=== PATIENT | male | born 1945 | race Caucasian/White ===

== ENCOUNTER → 2016-05-01 | Outpatient (CLI) | payer MEDICARE, MEDICAID, OTHER | LOC: RAD 08:38 | PROVIDERS: ATTEND Internal Medicine Gastroenterology | DX: R93.8 Abnormal findings on diagnostic imaging of other specified body structures (principal) | CPT/HCPCS: 74249 ==

== ENCOUNTER → 2016-08-06 | Outpatient (CLI) | payer MEDICARE, OTHER ==
--- NOTE | 2016-08-06 12:17 | RADIOLOGY REPORT (SQ) ---
EXAM DESCRIPTION: CT LUNG CANCER SCREENING COMPLETED DATE/TIME: 08/06/2016 10:22 am REASON FOR STUDY: NICOTINE DEPENDENCE F17.200 NICOTINE DEPENDENCE, UNSPECIFIED, UNCOMPLICATED Has the patient had a Chest CT scan within the past year? No Was the patient offered tobacco cessation counseling? No Was the patient engaged in shared decision making for this test? Yes Does the patient have signs or symptoms of Lung Cancer? No Is the patient a smoker? Yes How many packs per year? 365 How many years since quitting smoking? Patients age: 71 COMPARISON: None. TECHNIQUE: Low Dose CT scan performed of the chest without intravenous contrast for purposes of scre ening for lung cancer. Images reviewed with lung, soft tissue and bone windows. Reconstructed coron al and sagittal MPR images reviewed. All images stored on PACS. All CT scanners at this facility use dose modulation, iterative reconstruction, and/or weight based d osing when appropriate to reduce radiation dose to as low as reasonably achievable (ALARA). [facility]: Dose Right [facility]: CareDose [facility]: Dose Right [facility]: Teradose 4D [facility]: [employer] RADIATION DOSE: 1.95 mGy. . LIMITATIONS: None FINDINGS: LUNGS AND PLEURA: Less than 5 mm calcified granuloma. No pleural effusions or calcifica tions. No pneumothorax. Centrilobular and paraseptal emphysema. Linear scarring in the lingula an d middle lobe. HILAR AND MEDIASTINAL STRUCTURES: No identified masses. No abnormal nodes. HEART AND VASCULAR STRUCTURES: No aortic aneurysm. No pericardial effusion. No cardiac devices. CORONARY ARTERY CALCIFICATIONS: Mild to moderate calcifications. UPPER ABDOMEN, THYROID, BONES, OTHER SOFT TISSUES: No significant findings. IMPRESSION: NEGATIVE LUNG CANCER SCREENING. OTHER FINDINGS ABOVE. LUNGRADS: LUNGRADS: 1 NEGATIVE. NO NODULES, OR DEFINITELY BENIGN NODULES MODIFIER: NONE RECOMMENDATION: Continue annual screening with LDCT in 12 months. COMMENT: CRITERIA: No lung nodules. Nodules with specific calcifications: Complete, central, popcorn, concentric rings and fat containin g nodules. TECHNICAL DOCUMENTATION: JOB ID: [id number] Quality ID # [id number]: Final reports with documentation of one or more dose reduction techniques (e.g., Au tomated exposure control, adjustment of the mA and/or kV according to patient size, use of iterative reconstruction technique) 2010 [facility], [place] Rad[facility]
== END ==
LOC: RAD 10:01
PROVIDERS: ATTEND Family Medicine
DX: F17.200 Nicotine dependence, unspecified, uncomplicated (principal)
CPT/HCPCS: G0297

== ENCOUNTER 2016-10-11 10:49 | Emergency (ER) | payer MEDICARE, OTHER ==
[2016-10-11] MEDS ORDERED: ASPIRIN 325 MG TABLET PO ONE (11:18)
--- NOTE | 2016-10-11 11:22 | ER Document Report ---
ED Medical Screen (RME) - General Chief Complaint: Chest Pain Stated Complaint: CHEST PAIN Time Seen by Provider: 10/11/16 11:17 Mode of Arrival: Wheelchair Information source: Patient TRAVEL OUTSIDE OF THE [place] IN LAST 30 DAYS: No - HPI Patient complains to provider of: CP Onset: Other - pt with intermittent CP for the past few weeks -- had exacerbation this am. Has h/o COPD- quit smoking last week - Related Data Allergies/Adverse Reactions: Penicillins Allergy (Unknown, Verified 02/15/16 14:48) Hives adhesive [Adhesive] Adverse Reaction (Verified 02/15/16 14:48) IRRITATION AT TIMES Past Medical History - Social History Chew tobacco use (# tins/day): No Frequency of alcohol use: None Drug Abuse: None - Past Medical History Cardiac Medical History: Denies: Hx Coronary Artery Disease, Hx Heart Attack, Hx Hypertension Pulmonary Medical History: Reports: Hx COPD Denies: Hx Asthma, Hx Bronchitis, Hx Pneumonia, Hx Tuberculosis Neurological Medical History: Denies: Hx Cerebrovascular Accident, Hx Seizures Renal/ Medical History: Denies: Hx Peritoneal Dialysis GI Medical History: Reports: Hx Gastroesophageal Reflux Disease, Hx Irritable Bowel, Hx Ulcer Musculoskeltal Medical History: Reports Hx Arthritis - osteo, Reports Hx Fibromyalgia Psychiatric Medical History: Reports: Hx Depression Past Surgical History: Reports: Hx Abdominal Surgery - hernia repair x2, Hx Cholecystectomy, Hx Herniorrhaphy. Denies: Hx Pacemaker - Immunizations Immunizations up to date: Yes Hx Diphtheria, Pertussis, Tetanus Vaccination: No Physical Exam - Vital signs Vitals: Temp Pulse Resp BP Pulse Ox 98.1 F 64 18 98/55 L 96 10/11/16 11:02 10/11/16 11:02 10/11/16 11:02 10/11/16 11:02 10/11/16 11:02 Course - Vital Signs Vital signs: Temp Pulse Resp BP Pulse Ox 98.1 F 64 18 98/55 L 96 10/11/16 11:02 10/11/16 11:02 10/11/16 11:02 10/11/16 11:02 10/11/16 11:02
[2016-10-11 11:44] LABS: ABSOLUTE EOSINOPHILS # (AUTO) 0.1 10^3/uL (0.0-0.6); ABSOLUTE LYMPHOCYTES (AUTO) 1.5 10^3/uL (0.5-4.7); ABSOLUTE MONOCYTES (AUTO) 0.4 10^3/uL (0.1-1.4); ABSOLUTE NEUT (AUTO) 3.8 10^3/uL (1.7-8.2); BASOPHILS % (AUTO) 0.5 % (0-2); EOSINOPHILS % (AUTO) 1.1 % (0-6); HEMATOCRIT 41.2 % (37.9-51.0); HEMOGLOBIN 14.2 g/dL (13.5-17.0); HGB HCT DIFFERENCE 1.4; LYMPHOCYTES % (AUTO) 25.1 % (13-45); MEAN CORPUSCULAR HEMOGLOBIN 33.3 pg (27.0-33.4); MEAN CORPUSCULAR HGB CONC 34.6 g/dL (32.0-36.0); MEAN CORPUSCULAR VOLUME 96 fl (80-97); MONOCYTES % (AUTO) 7.6 % (3-13); RED BLOOD COUNT 4.28 10^6/uL (4.35-5.55); RED CELL DISTRIBUTION WIDTH 12.4 % (11.5-14.0); SEGMENTED NEUTROPHILS % (AUTO) 65.7 % (42-78); WHITE BLOOD COUNT 5.8 10^3/uL (4.0-10.5)
--- NOTE | 2016-10-11 11:51 | RADIOLOGY REPORT (SQ) ---
EXAM DESCRIPTION: CHEST PA/LAT COMPLETED DATE/TIME: 10/11/2016 11:39 am REASON FOR STUDY: CP COMPARISON: May 2015 EXAM PARAMETERS: NUMBER OF VIEWS: two views TECHNIQUE: Digital Frontal and Lateral radiographic views of the chest acquired. RADIATION DOSE: NA LIMITATIONS: none FINDINGS: LUNGS AND PLEURA: No opacities, masses or pneumothorax. No pleural effusion. Mild chronic appearing changes appears stable. I cannot exclude a component of obstructive lung disease MEDIASTINUM AND HILAR STRUCTURES: No masses or contour abnormalities. HEART AND VASCULAR STRUCTURES: Heart normal size. No evidence for failure. BONES: No acute findings. HARDWARE: None in the chest. OTHER: No other significant finding. IMPRESSION: No significant interval change. No acute findings. Other findings as noted above TECHNICAL DOCUMENTATION: JOB ID: [id number] [employer]- All Rights Reserved
[2016-10-11 11:58] LABS: ALANINE AMINOTRANSFERASE 29 U/L (21-72); ALKALINE PHOSPHATASE 61 U/L (38-126); ANION GAP 9 (5-19); ASPARTATE AMINO TRANSFERASE 17 U/L (17-59); BILIRUBIN,DIRECT 0.3 mg/dL (0.0-0.4); BILIRUBIN,TOTAL 0.9 mg/dL (0.2-1.3); BLOOD UREA NITROGEN 15 mg/dL (7-20); CALCIUM 9.8 mg/dL (8.4-10.2); CARBON DIOXIDE 28 mmol/L (22-30); CHLORIDE 103 mmol/L (98-107); CREATINE KINASE 39 U/L (55-170); CREATININE RESULT 0.63 mg/dL (0.52-1.25); GLUCOSE 74 mg/dL (75-110); POTASSIUM 4.1 mmol/L (3.6-5.0); SODIUM 140.1 mmol/L (137-145); TOTAL PROTEIN 6.7 g/dL (6.3-8.2)
--- NOTE | 2016-10-11 12:05 | ER Document Report ---
ED General - General Chief Complaint: Chest Pain Stated Complaint: CHEST PAIN Time Seen by Provider: 10/11/16 11:17 Mode of Arrival: Wheelchair Information source: Patient Notes: 71 yr old male hx of copd, osteoarthritis, fibromyalgia, presents with complaints of body aches, chest pain with shortness of breath. Patient notes this pain has been ongoing for months, he feels that he is addicted to his oxycodone, notes when he takes the oxycodone his pain resolves and his shortness of breath resolves but about 6 hours after taking it he starts to feel shaky feels sick feels short of breath with pain and symptoms did not resolve until about an hour after taking his next dose of pain medication TRAVEL OUTSIDE OF THE [place] IN LAST 30 DAYS: No - HPI Onset: Other Onset/Duration: Persistent Quality of pain: Achy Severity: Mild Pain Level: 1 Associated symptoms: Body/muscle aches, Nausea, Vomiting Exacerbated by: Denies Relieved by: Other Similar symptoms previously: Yes Recently seen / treated by doctor: No - Related Data Allergies/Adverse Reactions: Penicillins Allergy (Unknown, Verified 02/15/16 14:48) Hives adhesive [Adhesive] Adverse Reaction (Verified 02/15/16 14:48) IRRITATION AT TIMES Past Medical History - General Information source: Patient - Social History Smoking Status: Current Some Day Smoker Cigarette use (# per day): Yes Chew tobacco use (# tins/day): No Smoking Education Provided: No Frequency of alcohol use: None Drug Abuse: None Family History: None - Past Medical History Cardiac Medical History: Denies: Hx Coronary Artery Disease, Hx Heart Attack, Hx Hypertension Pulmonary Medical History: Reports: Hx COPD Denies: Hx Asthma, Hx Bronchitis, Hx Pneumonia, Hx Tuberculosis Neurological Medical History: Denies: Hx Cerebrovascular Accident, Hx Seizures Renal/ Medical History: Denies: Hx Peritoneal Dialysis GI Medical History: Reports: Hx Gastroesophageal Reflux Disease, Hx Irritable Bowel, Hx Ulcer Musculoskeltal Medical History: Reports Hx Arthritis - osteo, Reports Hx Fibromyalgia Psychiatric Medical History: Reports: Hx Depression Past Surgical History: Reports: Hx Abdominal Surgery - hernia repair x2, Hx Cholecystectomy, Hx Herniorrhaphy. Denies: Hx Pacemaker - Immunizations Immunizations up to date: Yes Hx Diphtheria, Pertussis, Tetanus Vaccination: No Hx Pneumococcal Vaccination: 03/01/11 Review of Systems - Review of Systems Notes: REVIEW OF SYSTEMS: CONSTITUTIONAL : Denies fever, chills, or sweats. Denies recent illness. EENT: Denies eye, ear, throat, or mouth pain or symptoms. Denies nasal or sinus congestion or discharge. Denies throat, tongue, or mouth swelling or difficulty swallowing. CARDIOVASCULAR: Denies chest pain. Denies palpitations or racing or irregular heart beat. Denies ankle edema. RESPIRATORY: Admits to shortness of breath GASTROINTESTINAL: Admits to nausea GENITOURINARY: Denies difficulty urinating, painful urination, burning, frequency, blood in urine, or discharge. MUSCULOSKELETAL: Admits to body aches SKIN: Denies rash, lesions or sores. HEMATOLOGIC : Denies easy bruising or bleeding. LYMPHATIC: Denies swollen, enlarged glands. NEUROLOGICAL: Denies confusion or altered mental status. Denies passing out or loss of consciousness. Denies dizziness or lightheadedness. Denies headache. Denies weakness or paralysis or loss of use of either side. Denies problems with gait or speech. Denies sensory loss, numbness, or tingling. Denies seizures. PSYCHIATRIC: Denies anxiety or stress. Denies depression, suicidal ideation, or homicidal ideation. ALL OTHER SYSTEMS REVIEWED AND NEGATIVE. Dictation was performed using [employer] voice recognition software PHYSICAL EXAMINATION: GENERAL: Well-appearing, well-nourished and in no acute distress. HEAD: Atraumatic, normocephalic. EYES: Pupils equal round and reactive to light, extraocular movements intact, sclera anicteric, conjunctiva are normal. ENT: Nares patent, oropharynx clear without exudates. Moist mucous membranes. NECK: Normal range of motion, supple without lymphadenopathy LUNGS: Breath sounds clear to auscultation bilaterally and equal. No wheezes rales or rhonchi. HEART: Regular rate and rhythm without murmurs ABDOMEN: Soft, nontender, nondistended abdomen. No guarding, no rebound. No masses appreciated. Musculoskeletal: Reproducible chest wall pain right shoulder pain NEUROLOGICAL: Cranial nerves grossly intact. Normal speech, normal gait. Normal sensory, motor exams PSYCH: Normal mood, normal affect. SKIN: Warm, Dry, normal turgor, no rashes or lesions noted. Physical Exam - Vital signs Vitals: Temp Pulse Resp BP Pulse Ox 98.1 F 64 18 98/55 L 96 10/11/16 11:02 10/11/16 11:02 10/11/16 11:02 10/11/16 11:02 10/11/16 11:02 Course - Re-evaluation Re-evalutation: 10/11/16 12:05 I agree with patients that this appears to be withdrawal-like symptoms since symptoms completely resolved with pain medication 10/11/16 12:37 I believe patients symptoms are secondary to withdrawal, will start clonidine. Give patient tramadol for pain mental health consulted for assistance After performing a Medical Screening Examination, I estimate there is LOW risk for RUPTURED ESOPHAGUS, PNEUMOTHORAX, PULMONARY EMBOLISM, ACUTE CORONARY SYNDROME, OR THORACIC AORTIC DISSECTION, thus I consider the discharge disposition reasonable. I have reevaluated this patient multiple times and no significant life threatening changes are noted. The patient and I have discussed the diagnosis and risks, and we agree with discharging home with close follow-up. We also discussed returning to the Emergency Department immediately if new or worsening symptoms occur. We have discussed the symptoms which are most concerning (e.g., bloody sputum, worsening pain or shortness of breath) that necessitate immediate return. - Vital Signs Vital signs: Temp Pulse Resp BP Pulse Ox 98.1 F 64 18 98/55 L 96 10/11/16 11:02 10/11/16 11:02 10/11/16 11:02 10/11/16 11:02 10/11/16 11:02 - Laboratory Result Diagrams: 10/11/16 11:20 10/11/16 11:20 Laboratory results interpreted by me: 10/11/16 10/11/16 11:20 11:20 RBC 4.28 L Glucose 74 L Creatine Kinase 39 L - Diagnostic Test Radiology reviewed: Image reviewed, Reports reviewed - EKG Interpretation by Nd EKG shows normal: Sinus rhythm, [place], Intervals, QRS Complexes Discharge - Discharge Clinical Impression: Withdrawal from opioids Chest pain Qualifiers: Chest pain type: unspecified Qualified Code(s): R07.9 - Chest pain, unspecified Condition: Stable Disposition: HOME, SELF-CARE Instructions: Chest Pain of Unclear Cause ([facility]) Additional Instructions: Please follow-up with the care plan provided to your return immediately if there are any other concerns Prescriptions: Tramadol HCl 50 mg PO Q6 #30 tablet
[2016-10-11 12:10] LABS: CREATINE KINASE MB 0.82 ng/mL (<4.55); TROPONIN I < 0.012 ng/mL
[2016-10-11] MEDS ORDERED: CLONIDINE 0.1 MG/24 HR PATCH.TDWK TD ONE (12:36)
[2016-10-11 13:08] VITALS: BP 119/66
--- NOTE | 2016-10-11 23:12 | EKG REPORT ---
SEVERITY:- NORMAL ECG - SINUS RHYTHM : Confirmed by: Karime Shell 11-Oct-2016 23:11:52
== END 2016-10-11 13:05 | disposition home or self-care (01) ==
LOC: ER 10:49
DX: F11.23 Opioid dependence with withdrawal (principal); M79.7 Fibromyalgia; R07.9 Chest pain, unspecified; R06.02 Shortness of breath; J44.9 Chronic obstructive pulmonary disease, unspecified; M19.90 Unspecified osteoarthritis, unspecified site; R11.2 Nausea with vomiting, unspecified; F17.210 Nicotine dependence, cigarettes, uncomplicated; Z88.0 Allergy status to penicillin; Z91.048 Other nonmedicinal substance allergy status
CPT/HCPCS: 93005; 99285; 36415; 82553; 82550; 85025; 80053; 84484; 71020; 93010; A9270; J3490

== ENCOUNTER 2016-10-22 09:31 | Emergency (ER) | payer MEDICARE, OTHER ==
[2016-10-22 09:40] VITALS: BP 117/103
--- NOTE | 2016-10-22 10:01 | ER Document Report ---
ED General - General Chief Complaint: Medication Refill Stated Complaint: WITHDRAWAL FROM OXICODONE Time Seen by Provider: 10/22/16 09:50 Mode of Arrival: Ambulatory Information source: Patient Notes: 71-year-old male who I had seen last week for withdrawal symptoms from his oxycodone who has been doing well on the clonidine and tramadol that I prescribed him presents feeling nauseous agitated since the clonidine patch wore off. Patient attempted to call for assistance with the crisis team but was told to come to the emergency department instead. Patient denies any suicidal homicidal ideations denies any other concerns at this time TRAVEL OUTSIDE OF THE [place] IN LAST 30 DAYS: No - HPI Onset: Last week Onset/Duration: Waxing and waning, Worse Quality of pain: No pain Severity: Mild Pain Level: Denies Associated symptoms: Nausea Exacerbated by: Denies Relieved by: Denies Similar symptoms previously: Yes Recently seen / treated by doctor: Yes - Related Data Allergies/Adverse Reactions: Penicillins Allergy (Unknown, Verified 02/15/16 14:48) Hives adhesive [Adhesive] Adverse Reaction (Verified 02/15/16 14:48) IRRITATION AT TIMES Past Medical History - Social History Smoking Status: Former Smoker Cigarette use (# per day): No Chew tobacco use (# tins/day): No Smoking Education Provided: No Frequency of alcohol use: None Drug Abuse: Prescription drugs Family History: None Patient has suicidal ideation: No Patient has homicidal ideation: No - Past Medical History Cardiac Medical History: Denies: Hx Coronary Artery Disease, Hx Heart Attack, Hx Hypertension Pulmonary Medical History: Reports: Hx COPD Denies: Hx Asthma, Hx Bronchitis, Hx Pneumonia, Hx Tuberculosis Neurological Medical History: Denies: Hx Cerebrovascular Accident, Hx Seizures Renal/ Medical History: Denies: Hx Peritoneal Dialysis GI Medical History: Reports: Hx Gastroesophageal Reflux Disease, Hx Irritable Bowel, Hx Ulcer Musculoskeltal Medical History: Reports Hx Arthritis - osteo, Reports Hx Fibromyalgia Psychiatric Medical History: Reports: Hx Depression Past Surgical History: Reports: Hx Abdominal Surgery - hernia repair x2, Hx Cholecystectomy, Hx Herniorrhaphy. Denies: Hx Pacemaker - Immunizations Immunizations up to date: Yes Hx Diphtheria, Pertussis, Tetanus Vaccination: No Hx Pneumococcal Vaccination: 03/01/11 Review of Systems - Review of Systems Notes: REVIEW OF SYSTEMS: CONSTITUTIONAL : Denies fever, chills, or sweats. Denies recent illness. EENT: Denies eye, ear, throat, or mouth pain or symptoms. Denies nasal or sinus congestion or discharge. Denies throat, tongue, or mouth swelling or difficulty swallowing. CARDIOVASCULAR: Denies chest pain. Denies palpitations or racing or irregular heart beat. Denies ankle edema. RESPIRATORY: Denies cough, cold, or chest congestion. Denies shortness of breath, difficulty breathing, or wheezing. GASTROINTESTINAL: Admits to nausea GENITOURINARY: Denies difficulty urinating, painful urination, burning, frequency, blood in urine, or discharge. MUSCULOSKELETAL: Denies back or neck pain or stiffness. Denies joint pain or swelling. SKIN: Denies rash, lesions or sores. HEMATOLOGIC : Denies easy bruising or bleeding. LYMPHATIC: Denies swollen, enlarged glands. NEUROLOGICAL: Admits to feeling agitated PSYCHIATRIC: Denies anxiety or stress. Denies depression, suicidal ideation, or homicidal ideation. ALL OTHER SYSTEMS REVIEWED AND NEGATIVE. Dictation was performed using [employer] voice recognition software PHYSICAL EXAMINATION: GENERAL: Well-appearing, well-nourished and in no acute distress. HEAD: Atraumatic, normocephalic. EYES: Pupils equal round and reactive to light, extraocular movements intact, sclera anicteric, conjunctiva are normal. ENT: Nares patent, oropharynx clear without exudates. Moist mucous membranes. NECK: Normal range of motion, supple without lymphadenopathy LUNGS: Breath sounds clear to auscultation bilaterally and equal. No wheezes rales or rhonchi. HEART: Regular rate and rhythm without murmurs ABDOMEN: Soft, nontender, nondistended abdomen. No guarding, no rebound. No masses appreciated. Musculoskeletal: Normal range of motion, no pitting or edema. No cyanosis. Digit amputation right hand second NEUROLOGICAL: Cranial nerves grossly intact. Normal speech, normal gait. Normal sensory, motor exams PSYCH: Normal mood, normal affect. SKIN: Warm, Dry, normal turgor, no rashes or lesions noted. Physical Exam - Vital signs Vitals: Temp Pulse Resp BP Pulse Ox 97.6 F 77 18 117/103 H 95 10/22/16 09:35 10/22/16 09:35 10/22/16 09:35 10/22/16 09:35 10/22/16 09:35 Course - Re-evaluation Re-evalutation: 10/22/16 10:42 At the patient's request of continued his clonidine, I spoke with my mental health team they have assured me that the crisis team will be able to see the patient. He will be given a refill of his tramadol as he will need this for his pain. Given the patient's symptoms resolved with clonidine I do not expect any other life-threatening issues associated with this patient must be followed up for further evaluation and care After performing a Medical Screening Examination, I estimate there is LOW risk for RUPTURED ESOPHAGUS, PNEUMOTHORAX, PULMONARY EMBOLISM, ACUTE CORONARY SYNDROME, OR THORACIC AORTIC DISSECTION, thus I consider the discharge disposition reasonable. I have reevaluated this patient multiple times and no significant life threatening changes are noted. The patient and I have discussed the diagnosis and risks, and we agree with discharging home with close follow-up. We also discussed returning to the Emergency Department immediately if new or worsening symptoms occur. We have discussed the symptoms which are most concerning (e.g., bloody sputum, worsening pain or shortness of breath) that necessitate immediate return. - Vital Signs Vital signs: Temp Pulse Resp BP Pulse Ox 97.6 F 77 18 117/103 H 95 10/22/16 09:35 10/22/16 09:35 10/22/16 09:35 10/22/16 09:35 10/22/16 09:35 Discharge - Discharge Clinical Impression: Narcotic withdrawal Condition: Stable Disposition: HOME, SELF-CARE Additional Instructions: Please call the number circled on your paper for further care Return immediately if there are any other concerns Prescriptions: Tramadol HCl [Ultram 50 mg Tablet] 50 mg PO Q6HP PRN #20 tab PRN Reason: Clonidine 1 each TD CONTINUOUS PRN #1 patch.tdwk PRN Reason: Referrals: NOLAN KHAN MD [Primary Care Provider] - Follow up as needed
== END 2016-10-22 10:05 | disposition home or self-care (01) ==
LOC: ER 09:31
DX: Z76.0 Encounter for issue of repeat prescription (principal); F19.939 Other psychoactive substance use, unspecified with withdrawal, unspecified; Z79.899 Other long term (current) drug therapy; Z87.891 Personal history of nicotine dependence
CPT/HCPCS: 99281

== ENCOUNTER 2016-12-01 10:52 | Emergency (ER) | payer MEDICARE, OTHER ==
[2016-12-01 11:06] VITALS: BP 149/73
--- NOTE | 2016-12-01 11:23 | ER Document Report ---
ED General - General Chief Complaint: High Blood Pressure Stated Complaint: BLOOD PRESSURE CONCERN Time Seen by Provider: 12/01/16 11:07 Notes: Patient said he was concerned when he took his blood pressure this morning and it was 139/78 and his heart rate was 98, which he said is too fast for him. He did not have any other concerning symptoms at that time, this morning. Patient says he has had no energy for years and been diagnosed as chronic fatigue syndrome. Also suffers from fibromyalgia. And, has insomnia and only gets about 3 hours sleep a night. Patient says he has had some nausea but not vomiting. He has occasional chest pains. Not feeling short of breath, although he does have COPD and smokes a pack of cigarettes daily. Has not had any fevers. No history of hypertension. Patient goes to pain management. 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 He has been provided with tramadol by his pain management doctor and has been able to get by on just 2 tramadol's daily. PMH: COPD, still smokes. Prostate condition. Fibromyalgia, chronic fatigue, insomnia. No history of hypertension or heart disease. TRAVEL OUTSIDE OF THE [place] IN LAST 30 DAYS: No - Related Data Allergies/Adverse Reactions: Penicillins Allergy (Unknown, Verified 02/15/16 14:48) Hives adhesive [Adhesive] Adverse Reaction (Verified 02/15/16 14:48) IRRITATION AT TIMES Past Medical History - Social History Smoking Status: Current Every Day Smoker Chew tobacco use (# tins/day): No Frequency of alcohol use: None Drug Abuse: None Family History: None Patient has suicidal ideation: No Patient has homicidal ideation: No Pulmonary Medical History: Reports: Hx COPD Renal/ Medical History: Reports: Hx Benign Prostatic Hyperplasia GI Medical History: Reports: Hx Gastroesophageal Reflux Disease, Hx Irritable Bowel, Hx Ulcer Musculoskeltal Medical History: Reports Hx Arthritis - osteo, Reports Hx Fibromyalgia, Reports Other - Chronic fatigue syndrome Psychiatric Medical History: Reports: Hx Depression, Other - Chronic insomnia, only 3 hours sleep a night Past Surgical History: Reports: Hx Abdominal Surgery - hernia repair x2, Hx Cholecystectomy, Hx Herniorrhaphy - Immunizations Immunizations up to date: Yes Hx Diphtheria, Pertussis, Tetanus Vaccination: No Hx Pneumococcal Vaccination: 03/01/11 Review of Systems - Review of Systems Notes: REVIEW OF SYSTEMS: CONSTITUTIONAL : Denies fever. EENT: Denies eye, ear, nose or mouth or throat pain or other symptoms. CARDIOVASCULAR: Occasionally has a fleeting chest pain. RESPIRATORY: Denies cough, chest congestion, but does have occasional shortness of breath due to his COPD.. GASTROINTESTINAL: Denies abdominal pain or vomiting, or diarrhea. Some nausea occasionally. GENITOURINARY: Has prostate condition on Flomax. Denies painful urinating, urinary frequency, blood in urine. MUSCULOSKELETAL: Denies back or neck pain. Denies joint pain or swelling. Has chronic pain in joints and goes to pain management where he receives injections by pain management doctor. SKIN: Denies rash or skin lesions. NEUROLOGICAL: Denies LOC or altered mental status. Denies headache. Denies sensory loss or motor deficits. ALL OTHER SYSTEMS REVIEWED AND NEGATIVE. Physical Exam - Vital signs Vitals: Temp Pulse Resp BP Pulse Ox 98.2 F 87 16 149/73 H 99 12/01/16 11:02 12/01/16 11:02 12/01/16 11:02 12/01/16 11:02 12/01/16 11:02 Interpretation: Normal, Hypertensive - Minimal - Notes Notes: PHYSICAL EXAMINATION: GENERAL: Well-appearing, in no acute distress. Anxious. Minimal hypertension but other vital signs are normal. HEAD: Atraumatic, normocephalic. EYES: Pupils equal round and reactive to light, extraocular movements intact. ENT: oropharynx clear without exudates. Moist mucous membranes. NECK: Normal range of motion, supple. LUNGS: Breath sounds distant but clear and equal bilaterally. HEART: Regular rate and rhythm without murmurs. ABDOMEN: Soft, nontender. No guarding or rebound. BACK: No tenderness throughout entire back. EXTREMITIES: Normal range of motion without pain. NEUROLOGICAL: Normal speech, normal gait. Normal sensory, motor, and reflex exams. Awake, alert, and oriented x3. Cranial nerves normal. PSYCH: Normal mood, normal affect. SKIN: Warm, dry, no rashes. Course - Vital Signs Vital signs: Temp Pulse Resp BP Pulse Ox 98.2 F 87 16 149/73 H 99 12/01/16 11:02 12/01/16 11:02 12/01/16 11:02 12/01/16 11:02 12/01/16 11:02 - Laboratory Result Diagrams: 12/01/16 11:35 12/01/16 11:35 Laboratory results interpreted by me: 12/01/16 12/01/16 11:35 11:35 MCH 33.7 H Carbon Dioxide 31 H - Diagnostic Test Radiology results interpreted by me: 12/01/16 12:46 Chest x-ray shows COPD but nothing acute. - EKG Interpretation by Me EKG shows normal: Sinus rhythm Rate: Normal Rhythm: NSR Additional EKG results interpreted by me: 12/01/16 11:39 EKG normal. Discharge - Discharge Clinical Impression: Hypertension Qualifiers: Hypertension type: essential hypertension Qualified Code(s): I10 - Essential ( primary) hypertension COPD (chronic obstructive pulmonary disease) Qualifiers: Chronic bronchitis type: simple Condition: Stable Disposition: HOME, SELF-CARE Additional Instructions: HIGH BLOOD PRESSURE, NOT TREAT: When your blood pressure was taken today it was elevated. Today's reading was 149 / 73. We do not think you need to have your blood pressure treated today. Sometimes, stress or illness causes a temporary elevation of your blood pressure. We suggest that you get your blood pressure measured again during the next few days to see if this elevated blood pressure is more than a temporary abnormality. If your blood pressure is greater than 150/90 on each occasion, you must have treatment. Some simple things you can do to help are: If you have blood pressure medicine but aren't using it regularly, start taking it again. Get some aerobic exercise for at least 20 minutes on a daily basis. (See your doctor before beginning a new exercise program.) Eat a low-fat diet. Lose excess weight. Avoid salty foods and avoid adding salt to any of the foods you eat. Avoid diet pills, decongestants, "energizing" herbs, and other medicines that elevate blood pressure. If left untreated, hypertension greatly enhances your risk for developing heart disease and strokes. Please don't ignore this problem. Chronic Obstructive Lung Disease You have chronic obstructive lung disease (COPD). The symptoms come from emphysema (damage to small airways, with trapping of air in large sacks in the lung) and chronic bronchitis (repeated infection and damage to larger airways). The cause is almost always cigarette smoking, although dust exposure, asthma, and infections contribute. You should avoid fumes, dust, and smoke (especially tobacco smoke). Your condition will flare from time to time. There is no cure, but the symptoms can be treated. Bronchodilators (asthma medicine) are often helpful. Antibiotics help when infection is present. When shortness of breath is severe, we may prescribe cortisone medication. If medicine doesn't help enough, we can arrange for you to have an oxygen tank at home. Notify your doctor at once if sputum becomes thick, foul, or bloody, if you develop a fever or chest pain, or if your shortness of breath worsens. NORMAL EXAM AND WORKUP: At this time, your examination and workup show no significant abnormality. No significant abnormal physical findings were noted. All laboratory, EKG, and imaging (x-ray, CT scans, ultrasound) studies that were ordered show no significant abnormality. Although your examination and all studies that were ordered showed no significant abnormal finding, there are no examinations and no studies that are 100% accurate. There is always the possibility that some abnormality could exist and not be detected with physical examination or within the limits and capabilities of laboratory and other studies. You should return or follow up as you were instructed on your visit today for further evaluation if your symptoms do not resolve. Stop Smoking You should stop smoking. The tar and chemicals in cigarette smoke are harmful. Smoking has been shown to cause: Emphysema and chronic bronchitis Lung cancer Cancer of the mouth, larynx, stomach, and pancreas Heart disease and stroke Stillbirths and miscarriage Premature aging In addition, smoking increases the chances of respiratory infections and ear infections in children of smokers, and increases the risk of cancer in persons exposed to second-hand smoke. Classes are available to help you stop smoking. If you are serious about wanting to quit, we can help arrange this therapy for you, or you can contact the local lung or cancer association. FOLLOW-UP CARE: If you have been referred to a physician for follow-up care, call the physician s office for an appointment as you were instructed or within the next two days. If you experience worsening or a significant change in your symptoms, notify the physician immediately or return to the Emergency Department at any time for re-evaluation.
[2016-12-01 11:50] LABS: ABSOLUTE BASOPHILS # (AUTO) 0.1 10^3/uL (0.0-0.2); ABSOLUTE EOSINOPHILS # (AUTO) 0.1 10^3/uL (0.0-0.6); ABSOLUTE LYMPHOCYTES (AUTO) 1.7 10^3/uL (0.5-4.7); ABSOLUTE MONOCYTES (AUTO) 0.5 10^3/uL (0.1-1.4); ABSOLUTE NEUT (AUTO) 5.1 10^3/uL (1.7-8.2); BASOPHILS % (AUTO) 0.7 % (0-2); EOSINOPHILS % (AUTO) 1.8 % (0-6); HEMATOCRIT 45.5 % (37.9-51.0); HEMOGLOBIN 15.9 g/dL (13.5-17.0); HGB HCT DIFFERENCE 2.2; LYMPHOCYTES % (AUTO) 22.7 % (13-45); MEAN CORPUSCULAR HEMOGLOBIN 33.7 pg (27.0-33.4); MEAN CORPUSCULAR VOLUME 96 fl (80-97); MONOCYTES % (AUTO) 6.5 % (3-13); RED BLOOD COUNT 4.72 10^6/uL (4.35-5.55); RED CELL DISTRIBUTION WIDTH 12.9 % (11.5-14.0); SEGMENTED NEUTROPHILS % (AUTO) 68.3 % (42-78); WHITE BLOOD COUNT 7.5 10^3/uL (4.0-10.5)
[2016-12-01 11:58] LABS: APPEARANCE,URINE CLEAR; BILIRUBIN,URINE NEGATIVE (NEGATIVE); GLUCOSE, URINE NEGATIVE (NEGATIVE); KETONES,URINE NEGATIVE (NEGATIVE); LEUKOCYTE ESTERASE,URINE NEGATIVE (NEGATIVE); NITRITE,URINE NEGATIVE (NEGATIVE); PROTEIN,URINE NEGATIVE (NEGATIVE); URINE SPECIFIC GRAVITY 1.012; UROBILINOGEN,URINE NEGATIVE mg/dL (<2.0)
[2016-12-01 12:18] LABS: ALANINE AMINOTRANSFERASE 26 U/L (21-72); ALBUMIN 4.4 g/dL (3.5-5.0); ALKALINE PHOSPHATASE 72 U/L (38-126); ANION GAP 8 (5-19); ASPARTATE AMINO TRANSFERASE 20 U/L (17-59); BILIRUBIN,DIRECT 0.4 mg/dL (0.0-0.4); BILIRUBIN,TOTAL 1.1 mg/dL (0.2-1.3); BLOOD UREA NITROGEN 15 mg/dL (7-20); CALCIUM 9.9 mg/dL (8.4-10.2); CARBON DIOXIDE 31 mmol/L (22-30); CHLORIDE 103 mmol/L (98-107); CREATININE RESULT 0.62 mg/dL (0.52-1.25); GLUCOSE 91 mg/dL (75-110); LIPASE 97.4 U/L (23-300); POTASSIUM 4.9 mmol/L (3.6-5.0); SODIUM 142.1 mmol/L (137-145); TOTAL PROTEIN 7.1 g/dL (6.3-8.2)
--- NOTE | 2016-12-01 12:19 | RADIOLOGY REPORT (SQ) ---
EXAM DESCRIPTION: CHEST PA/LAT COMPLETED DATE/TIME: 12/01/2016 12:00 pm REASON FOR STUDY: High blood pressure and occasional chest pain COMPARISON: CT chest 08/06/2016 Two-view chest 10/11/2016, 06/26/2015 EXAM PARAMETERS: NUMBER OF VIEWS: two views TECHNIQUE: Digital Frontal and Lateral radiographic views of the chest acquired. RADIATION DOSE: NA LIMITATIONS: none FINDINGS: LUNGS AND PLEURA: Lungs are hyperinflated and hyperlucent. Flattening in the hemidiaphrag ms from obstructive disease. No acute infiltrates. No pleural effusion. No pneumothorax. MEDIASTINUM AND HILAR STRUCTURES: No masses or contour abnormalities. HEART AND VASCULAR STRUCTURES: Heart normal size. No evidence for failure. BONES: Osteoporotic. No thoracic compression deformity. HARDWARE: None in the chest. OTHER: No other significant finding. IMPRESSION: Obstructive lung disease. No acute infiltrates. TECHNICAL DOCUMENTATION: JOB ID: [id number] [employer]- All Rights Reserved
[2016-12-01 12:28] LABS: CREATINE KINASE MB 1.97 ng/mL (<4.55)
[2016-12-01 12:29] LABS: TROPONIN I < 0.012 ng/mL
--- NOTE | 2016-12-01 18:20 | EKG REPORT ---
SEVERITY:- NORMAL ECG - SINUS RHYTHM : Confirmed by: Esther Raymond MD 01-Dec-2016 18:18:50
== END 2016-12-01 13:49 | disposition home or self-care (01) ==
LOC: ER 10:52
DX: I10 Essential (primary) hypertension (principal); J44.9 Chronic obstructive pulmonary disease, unspecified; R53.82 Chronic fatigue, unspecified; M79.7 Fibromyalgia; G47.00 Insomnia, unspecified; R11.0 Nausea; R07.9 Chest pain, unspecified; F17.210 Nicotine dependence, cigarettes, uncomplicated; N42.9 Disorder of prostate, unspecified; Z79.899 Other long term (current) drug therapy; Z79.891 Long term (current) use of opiate analgesic; Z88.0 Allergy status to penicillin
CPT/HCPCS: 36415; 71020; 80053; 81001; 82553; 83690; 84484; 85025; 93005; 93010; 99284

== ENCOUNTER 2016-12-15 15:47 | Emergency (ER) | payer MEDICARE, MEDICAID ==
--- NOTE | 2016-12-15 16:15 | ER Document Report ---
ED Medical Screen (RME) - General Chief Complaint: Doesn't Feel Right Stated Complaint: POSSIBLE REACTION TO MEDICATION Time Seen by Provider: 12/15/16 16:01 Notes: Patient presents stating that "something is not right". He states he has had significant weakness and tiredness for several years and it is now getting worse. He states he also feels short of breath. Patient states that he was recently started on tramadol and Cymbalta but he has stopped these medications because he did not like the side effects. He last had these medicines 3 days ago however he states he still has the symptoms. He states he had many of his symptoms however before he started those medications. He states that the main symptoms that are bothering him are nausea, sleepiness, tiredness, headache, abdominal pain, trouble breathing, chest pain, throat pain, feeling faint, agitation, stiff muscles, and confusion. TRAVEL OUTSIDE OF THE [place] IN LAST 30 DAYS: No - Related Data Allergies/Adverse Reactions: Penicillins Allergy (Unknown, Verified 12/15/16 15:58) Hives adhesive [Adhesive] Adverse Reaction (Verified 12/15/16 15:58) IRRITATION AT TIMES Past Medical History - Social History Frequency of alcohol use: None Drug Abuse: None - Past Medical History Cardiac Medical History: Denies: Hx Heart Attack, Hx Hypertension Pulmonary Medical History: Reports: Hx COPD Denies: Hx Asthma, Hx Bronchitis, Hx Pneumonia, Hx Tuberculosis Neurological Medical History: Denies: Hx Seizures Renal/ Medical History: Reports: Hx Benign Prostatic Hyperplasia. Denies: Hx Peritoneal Dialysis GI Medical History: Reports: Hx Gastroesophageal Reflux Disease, Hx Irritable Bowel, Hx Ulcer Musculoskeltal Medical History: Reports Hx Arthritis - osteo, Reports Hx Fibromyalgia Psychiatric Medical History: Reports: Hx Depression Past Surgical History: Reports: Hx Abdominal Surgery - hernia repair x2, Hx Cholecystectomy, Hx Herniorrhaphy - Immunizations Immunizations up to date: Yes Hx Diphtheria, Pertussis, Tetanus Vaccination: No History of Influenza Vaccine for 11/2016 - 04/2017 Season: No Physical Exam - Vital signs Vitals: Temp Pulse BP Pulse Ox 98.4 F 81 122/65 93 12/15/16 15:56 12/15/16 15:56 12/15/16 15:56 12/15/16 15:56 Course - Vital Signs Vital signs: Temp Pulse Resp BP Pulse Ox 98.4 F 81 122/65 93 12/15/16 15:56 12/15/16 15:56 12/15/16 15:56 12/15/16 15:56
[2016-12-15 17:04] LABS: ABSOLUTE LYMPHOCYTES (AUTO) 1.6 10^3/uL (0.5-4.7); ABSOLUTE MONOCYTES (AUTO) 0.5 10^3/uL (0.1-1.4); ABSOLUTE NEUT (AUTO) 6.6 10^3/uL (1.7-8.2); BASOPHILS % (AUTO) 0.2 % (0-2); EOSINOPHILS % (AUTO) 0.5 % (0-6); HEMATOCRIT 40.7 % (37.9-51.0); HEMOGLOBIN 14.2 g/dL (13.5-17.0); HGB HCT DIFFERENCE 1.9; LYMPHOCYTES % (AUTO) 18.7 % (13-45); MEAN CORPUSCULAR HEMOGLOBIN 33.1 pg (27.0-33.4); MEAN CORPUSCULAR VOLUME 95 fl (80-97); MONOCYTES % (AUTO) 5.4 % (3-13); RED CELL DISTRIBUTION WIDTH 12.2 % (11.5-14.0); SEGMENTED NEUTROPHILS % (AUTO) 75.2 % (42-78); WHITE BLOOD COUNT 8.8 10^3/uL (4.0-10.5)
--- NOTE | 2016-12-15 17:16 | RADIOLOGY REPORT (SQ) ---
EXAM DESCRIPTION: CHEST PA/LAT COMPLETED DATE/TIME: 12/15/2016 5:08 pm REASON FOR STUDY: sob COMPARISON: Two-view chest 12/01/2016, 06/26/2015 CT chest 08/06/2016 NUMBER OF VIEWS: Two view. TECHNIQUE: Frontal and lateral radiographic views of the chest acquired. LIMITATIONS: None. FINDINGS: LUNGS AND PLEURA: No opacities, masses or pneumothorax. No pleural effusion. Attenuated bl ood vessels and flattened leif-diaphragms. MEDIASTINUM AND HILAR STRUCTURES: No masses. No contour abnormalities. HEART AND VASCULAR STRUCTURES: Heart normal in size and contour. No evidence for failure. BONES: Osteoporotic HARDWARE: Clips right upper quadrant post cholecystectomy OTHER: No other significant finding. IMPRESSION: COPD. NO ACUTE RADIOGRAPHIC FINDING IN THE CHEST. TECHNICAL DOCUMENTATION: JOB ID: [id number] [employer]- All Rights Reserved
[2016-12-15 17:21] LABS: ALANINE AMINOTRANSFERASE 32 U/L (21-72); ALKALINE PHOSPHATASE 67 U/L (38-126); ANION GAP 12 (5-19); ASPARTATE AMINO TRANSFERASE 20 U/L (17-59); BILIRUBIN,DIRECT 0.3 mg/dL (0.0-0.4); BILIRUBIN,TOTAL 0.9 mg/dL (0.2-1.3); BLOOD UREA NITROGEN 12 mg/dL (7-20); CALCIUM 9.7 mg/dL (8.4-10.2); CARBON DIOXIDE 30 mmol/L (22-30); CHLORIDE 101 mmol/L (98-107); CREATININE RESULT 0.71 mg/dL (0.52-1.25); GLUCOSE 127 mg/dL (75-110); POTASSIUM 3.7 mmol/L (3.6-5.0); SODIUM 142.5 mmol/L (137-145); TOTAL PROTEIN 6.5 g/dL (6.3-8.2)
[2016-12-15 17:47] LABS: AMORPHOUS SEDIMENT,URINE 1+ /HPF; APPEARANCE,URINE TURBID; BILIRUBIN,URINE NEGATIVE (NEGATIVE); GLUCOSE, URINE NEGATIVE (NEGATIVE); KETONES,URINE NEGATIVE (NEGATIVE); LEUKOCYTE ESTERASE,URINE NEGATIVE (NEGATIVE); NITRITE,URINE NEGATIVE (NEGATIVE); PROTEIN,URINE NEGATIVE (NEGATIVE); URINE SPECIFIC GRAVITY 1.014
--- NOTE | 2016-12-15 18:20 | EKG REPORT ---
SEVERITY:- BORDERLINE ECG - SINUS RHYTHM BORDERLINE T ABNORMALITIES, ANT-LAT LEADS : Confirmed by: Esther Raymond MD 15-Dec-2016 18:19:34
--- NOTE | 2016-12-15 18:26 | ER Document Report ---
ED General - General Chief Complaint: Doesn't Feel Right Stated Complaint: POSSIBLE REACTION TO MEDICATION Time Seen by Provider: 12/15/16 16:01 Mode of Arrival: Ambulatory Information source: Patient, Relative TRAVEL OUTSIDE OF THE [place] IN LAST 30 DAYS: No - HPI Notes: Patient presents stating that "something is not right". He states he has had significant weakness and tiredness for several years and it is now getting worse. He states he also feels short of breath. Patient states that he was recently started on tramadol and Cymbalta but he has stopped these medications because he did not like the side effects. He last had these medicines 3 days ago however he states he still has the symptoms. He states he had many of his symptoms however before he started those medications. He states that the main symptoms that are bothering him are nausea, sleepiness, tiredness, headache, abdominal pain, trouble breathing, chest pain, throat pain, feeling faint, agitation, stiff muscles, and confusion. Pt reports a long-standing history of chest pain dating back for many years. He also reports a long-standing history of gastritis with midepigastric pain, but he is not on an acid angel. The patient was previously on chronic oxycodone therapy which was increased regularly because it kept becoming ineffective at the current dose, but the patient stopped these abruptly 60-70 days ago and experienced a mild withdrawal state. The patient follows up with [facility] pain management. Patient has history of reflux COPD asthma osteoarthritis and has been told that he may have fibromyalgia. - Related Data Allergies/Adverse Reactions: Penicillins Allergy (Unknown, Verified 12/15/16 15:58) Hives adhesive [Adhesive] Adverse Reaction (Verified 12/15/16 15:58) IRRITATION AT TIMES Past Medical History - General Information source: Patient, Relative - Social History Smoking Status: Current Some Day Smoker Frequency of alcohol use: None Drug Abuse: None Family History: None - Past Medical History Cardiac Medical History: Denies: Hx Heart Attack, Hx Hypertension Pulmonary Medical History: Reports: Hx COPD Denies: Hx Asthma, Hx Bronchitis, Hx Pneumonia, Hx Tuberculosis Neurological Medical History: Denies: Hx Seizures Renal/ Medical History: Reports: Hx Benign Prostatic Hyperplasia. Denies: Hx Peritoneal Dialysis GI Medical History: Reports: Hx Gastroesophageal Reflux Disease, Hx Irritable Bowel, Hx Ulcer Musculoskeltal Medical History: Reports Hx Arthritis - osteo, Reports Hx Fibromyalgia Psychiatric Medical History: Reports: Hx Depression Past Surgical History: Reports: Hx Abdominal Surgery - hernia repair x2, Hx Cholecystectomy, Hx Herniorrhaphy - Immunizations Immunizations up to date: Yes Hx Diphtheria, Pertussis, Tetanus Vaccination: No Hx Pneumococcal Vaccination: 03/01/11 Review of Systems - Review of Systems Notes: REVIEW OF SYSTEMS: CONSTITUTIONAL : Denies fever or sweats. questions some chills. EENT: Denies eye, ear, throat, or mouth pain or symptoms. Denies nasal or sinus congestion or discharge. Denies throat, tongue, or mouth swelling or difficulty swallowing. CARDIOVASCULAR: Currently denies chest pain. Denies palpitations or racing or irregular heart beat. Denies ankle edema. RESPIRATORY: Denies cough, cold, or chest congestion. GASTROINTESTINAL: Denies abdominal distention. Denies vomiting, or diarrhea. Denies blood in vomitus, stools, or per rectum. Denies black, tarry stools. Denies constipation. Patient does report occasional nausea. GENITOURINARY: Denies difficulty urinating, painful urination, burning, frequency, blood in urine, or discharge. MUSCULOSKELETAL: Patient reports chronic myalgias and arthralgias which are unchanged. Chronic muscle pain. SKIN: Denies rash, lesions or sores. HEMATOLOGIC : Denies easy bruising or bleeding. LYMPHATIC: Denies swollen, enlarged glands. NEUROLOGICAL: Denies altered mental status. Denies passing out or loss of consciousness. Denies headache. Denies weakness or paralysis or loss of use of either side. Denies problems with gait or speech. Denies sensory loss, numbness, or tingling. Denies seizures. PSYCHIATRIC: Denies anxiety or stress. Denies suicidal ideation, or homicidal ideation. ALL OTHER SYSTEMS REVIEWED AND NEGATIVE. Dictation was performed using [employer] voice recognition software Physical Exam - Vital signs Vitals: Temp Pulse BP Pulse Ox 98.4 F 81 122/65 93 12/15/16 15:56 12/15/16 15:56 12/15/16 15:56 12/15/16 15:56 - Notes Notes: PHYSICAL EXAMINATION: GENERAL: Well-appearing, well-nourished and in no acute distress. Thin. HEAD: Atraumatic, normocephalic. EYES: Pupils equal round and reactive to light, extraocular movements intact, sclera anicteric, conjunctiva are normal. ENT: Nares patent, oropharynx clear without exudates. Moist mucous membranes. NECK: Normal range of motion, supple without lymphadenopathy LUNGS: Breath sounds clear to auscultation bilaterally and equal. No wheezes rales or rhonchi. HEART: Regular rate and rhythm without murmurs ABDOMEN: Soft, nontender, nondistended abdomen. No guarding, no rebound. No masses appreciated. Musculoskeletal: Normal range of motion, no pitting or edema. No cyanosis. Diffuse pain through the chest wall and through the upper back and lower back and through knees and posterior shoulders. No crepitance or erythema. Negative Homans. No palpable cord. NEUROLOGICAL: Cranial nerves grossly intact. Normal speech, normal gait. Normal sensory, motor exams PSYCH: Normal mood, normal affect. SKIN: Warm, Dry, normal turgor, no rashes or lesions noted. Course - Re-evaluation Re-evalutation: 12/15/16 19:02 Patient was given Pepcid and was given tramadol. On repeat evaluation the patient denied any abdominal pain and reported no other discomfort felt stable for discharge. Vital signs were stable. No evidence for thyroid toxicity electrolyte imbalance, cardiac ischemia, CHF, acute [place], renal insufficiency or anemia or GI bleed or CHF. 12/15/16 21:08 - Vital Signs Vital signs: Temp Pulse Resp BP Pulse Ox 98.4 F 81 122/65 93 12/15/16 15:56 12/15/16 15:56 12/15/16 15:56 12/15/16 15:56 - Laboratory Result Diagrams: 12/15/16 16:46 12/15/16 16:45 Laboratory results interpreted by me: 12/15/16 12/15/16 12/15/16 16:45 16:46 16:46 RBC 4.30 L Glucose 127 H Urine Urobilinogen 2.0 H Urine Ascorbic Acid 40 H - EKG Interpretation by Me Additional EKG results interpreted by me: 12/15/16 19:02 EKG as interpreted by me showed normal sinus rhythm heart rate of 66 with no obvious evidence for acute [place] or ischemia noted. There is no change from previous EKG reviewed from 12/01/16. Discharge - Discharge Clinical Impression: Gastritis Qualifiers: Gastritis type: unspecified gastritis Chronicity: acute Gastritis bleeding: without bleeding Qualified Code(s): K29.00 - Acute gastritis without bleeding Medication withdrawal Qualifiers: Substance type: other psychoactive substance Qualified Code(s): F19.939 - Other psychoactive substance use, unspecified with withdrawal, unspecified Insomnia Qualifiers: Insomnia type: unspecified Qualified Code(s): G47.00 - Insomnia, unspecified Condition: Stable Disposition: HOME, SELF-CARE Instructions: Gastritis ([facility]), Insomnia ([facility]) Additional Instructions: Have your doctor consider low-dose Ambien to help with insomnia. Have your doctor consider low-dose Neurontin for chronic pain. You may take Tylenol as directed regularly for pain. Continue taking tramadol as needed for chronic pain. We will start you on an acid angel, omeprazole for gastritis. Prescriptions: Omeprazole 20 mg PO DAILY #60 tablet. Referrals: NOLAN KHAN MD [Primary Care Provider] - Follow up as needed
[2016-12-15] MEDS ORDERED: FAMOTIDINE 20 MG TABLET PO ONE (18:54)
[2016-12-15] MEDS ORDERED: TRAMADOL HCL 50 MG TABLET PO ONE (18:54)
[2016-12-15 21:20] VITALS: BP 134/67
== END 2016-12-15 21:22 | disposition home or self-care (01) ==
LOC: ER 15:47
DX: K29.00 Acute gastritis without bleeding (principal); F19.939 Other psychoactive substance use, unspecified with withdrawal, unspecified; G47.00 Insomnia, unspecified; R53.1 Weakness; R53.83 Other fatigue; J44.9 Chronic obstructive pulmonary disease, unspecified; R06.02 Shortness of breath; R11.0 Nausea; R51 Headache; R07.0 Pain in throat; R10.13 Epigastric pain; M25.519 Pain in unspecified shoulder; R07.89 Other chest pain; M54.5 Low back pain; M25.569 Pain in unspecified knee; R29.898 Other symptoms and signs involving the musculoskeletal system; R45.1 Restlessness and agitation; R41.0 Disorientation, unspecified; M79.1 Myalgia; G89.29 Other chronic pain; I10 Essential (primary) hypertension; F17.200 Nicotine dependence, unspecified, uncomplicated; Z87.19 Personal history of other diseases of the digestive system; Z90.49 Acquired absence of other specified parts of digestive tract; Z88.0 Allergy status to penicillin
CPT/HCPCS: 93005; 99284; 36415; 84439; 83690; 84443; 85025; 80053; 81001; 84484; 83880; 71020; 93010; A9270 ×2

== ENCOUNTER → 2017-04-29 | Outpatient (CLI) | payer MEDICARE ==
--- NOTE | 2017-04-29 12:22 | RADIOLOGY REPORT (SQ) ---
EXAM DESCRIPTION: CT ABD/PELVIS WITH IV ORAL COMPLETED DATE/TIME: 04/29/2017 10:23 am REASON FOR STUDY: ABDOMINAL PAIN AT MULTIPLE SITES R10.9 UNSPECIFIED ABDOMINAL PAIN COMPARISON: 09/23/2015 and 07/20/2013. TECHNIQUE: CT scan of the abdomen and pelvis performed with intravenous and oral contrast using clarke airam scanning technique with dynamic intravenous contrast injection. Images reviewed with lung, soft t issue, and bone windows. Reconstructed coronal and sagittal MPR images reviewed. Delayed images for e valuation of the urinary system also acquired. All images stored on PACS. All CT scanners at this facility use dose modulation, iterative reconstruction, and/or weight based d osing when appropriate to reduce radiation dose to as low as reasonably achievable (ALARA). [facility]: Dose Right [facility]: CareDose [facility]: Dose Right [facility]: Teradose 4D [facility]: [employer] CONTRAST TYPE AND DOSE: contrast/concentration: Isovue 370.00 mg/ml; Total Contrast Delivered: 56.0 ml; Total Saline Delivered: 65.0 ml RENAL FUNCTION: Creatinine 0.8. RADIATION DOSE: CT Rad equipment meets quality standard of care and radiation dose reduction techniq ues were employed. CTDIvol: 2.5 - 2.9 mGy. DLP: 245 mGy-cm.. LIMITATIONS: None. FINDINGS: LOWER CHEST: No significant findings. No nodules or infiltrates. LIVER: Normal size. No masses. No dilated ducts. SPLEEN: Normal size. Again seen are heterogenous ill-defined low-attenuation lesions, the largest in the left side. PANCREAS: No masses. No significant calcifications. No adjacent inflammation or peripancreatic fluid collections. Pancreatic duct not dilated. GALLBLADDER: Surgically absent. ADRENAL GLANDS: No significant masses or asymmetry. RIGHT KIDNEY AND URETER: No solid masses. No significant calcification. No hydronephrosis or hydroure ter. LEFT KIDNEY AND URETER: No solid masses. No significant calcification. No hydronephrosis or hydrouret er. AORTA AND VESSELS: No aneurysm. No dissection. Renal arteries, SMA, celiac without stenosis. RETROPERITONEUM: No retroperitoneal adenopathy, hemorrhage or masses. BOWEL AND PERITONEAL CAVITY: No obstruction. No visualized masses. No free fluid. No inflammatory ch anges or thickening of bowel wall. APPENDIX: Normal. PELVIS: Irregular soft tissue in the right inguinal region, measuring 2.5 x 3 cm. Similar appearance on the prior study. Otherwise no significant masses. Normal bladder. No free fluid. ABDOMINAL WALL: No masses. No hernias. BONES: No significant or acute findings. OTHER: No other significant finding. IMPRESSION: 1. IRREGULAR SOFT TISSUE IN THE RIGHT INGUINAL REGION WHICH APPEARS GROSSLY UNCHANGED SINCE AUGUST 2015 . PRESUMABLY THIS REPRESENTS CHRONIC SCARRING RELATED TO PRIOR INGUINAL HERNIA REPAIR. AN ABNORMAL LYMPH NODE OR OTHER SOFT TISSUE MASS COULD GIVE A SIMILAR APPEARANCE BUT THE STABILITY FOR ALMOST 2 Y EARS SUGGESTS BENIGN ETIOLOGY. 2. 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 3. NO OTHER SIGNIFICANT OR ACUTE FINDINGS IN THE ABDOMEN OR PELVIS. TECHNICAL DOCUMENTATION: JOB ID: [id number] Quality ID # [id number]: Final reports with documentation of one or more dose reduction techniques (e.g., Au tomated exposure control, adjustment of the mA and/or kV according to patient size, use of iterative reconstruction technique) 2010 [employer]- All Rights Reserved Reading location - IP/workstation name: [email or web address]
== END ==
LOC: RAD 09:40
PROVIDERS: ATTEND Physician Assistant Medical
DX: R10.9 Unspecified abdominal pain (principal)
CPT/HCPCS: 74177; 82565

== ENCOUNTER → 2017-09-07 | Outpatient (CLI) | payer MEDICAID, MEDICARE ==
--- NOTE | 2017-09-07 10:36 | RADIOLOGY REPORT (SQ) ---
EXAM DESCRIPTION: CT LUNG CANCER SCREENING COMPLETED DATE/TIME: 09/07/2017 10:21 am REASON FOR STUDY: NICOTINE DEPENDENCE (F17.211) F17.211 NICOTINE DEPENDENCE, CIGARETTES, IN REMISSI ON Has the patient had a Chest CT scan within the past year? No Was the patient offered tobacco cessation counseling? Yes Was the patient engaged in shared decision making for this test? Yes Does the patient have signs or symptoms of Lung Cancer? No Is the patient a smoker? Yes How many packs per year? 365 How many years since quitting smoking? Not applicable Patients age: 72 COMPARISON: CT lung screening 08/06/2016 CT chest 04/26/2013 TECHNIQUE: Low Dose CT scan performed of the chest without intravenous contrast for purposes of scre ening for lung cancer. Images reviewed with lung, soft tissue and bone windows. Reconstructed coron al and sagittal MPR images reviewed. All images stored on PACS. All CT scanners at this facility use dose modulation, iterative reconstruction, and/or weight based d osing when appropriate to reduce radiation dose to as low as reasonably achievable (ALARA). [facility]: Dose Right [facility]: CareDose [facility]: Dose Right [facility]: Teradose 4D [facility]: [employer] RADIATION DOSE: CT Rad equipment meets quality standard of care and radiation dose reduction techniq ues were employed. CTDIvol: 2.0 mGy. DLP: 80 mGy-cm. mGy. . LIMITATIONS: None FINDINGS: LUNGS AND PLEURA: No masses or nodules. No pleural effusions or calcifications. No pne umothorax. There is obstructive lung disease with enlarged airspaces, upper lobe predominant. On today's scan, there is bandlike atelectasis in the inferior aspect of the right middle lobe and li ngula unchanged compared to scans dating back to 2014. There is minimal atelectasis in the right lateral costophrenic sulcus, new compared to both prior sca ns. HILAR AND MEDIASTINAL STRUCTURES: No identified masses. No abnormal nodes. HEART AND VASCULAR STRUCTURES: No aortic aneurysm. No pericardial effusion. No cardiac devices. CORONARY ARTERY CALCIFICATIONS: Mild to moderate calcifications. UPPER ABDOMEN, THYROID, BONES, OTHER SOFT TISSUES: No significant findings. IMPRESSION: No findings worrisome for malignancy Obstructive lung disease. Minimal atelectasis in the right lateral costophrenic sulcus LUNGRADS: LUNGRADS: 1 NEGATIVE. NO NODULES, OR DEFINITELY BENIGN NODULES MODIFIER: NONE RECOMMENDATION: Continue annual screening with LDCT in 12 months. COMMENT: CRITERIA: No lung nodules. Nodules with specific calcifications: Complete, central, popcorn, concentric rings and fat containin g nodules. TECHNICAL DOCUMENTATION: JOB ID: [id number] Quality ID # [id number]: Final reports with documentation of one or more dose reduction techniques (e.g., Au tomated exposure control, adjustment of the mA and/or kV according to patient size, use of iterative reconstruction technique) 2010 [facility] Radiology Reading location - IP/workstation name: [facility]
== END ==
LOC: RAD 09:45
PROVIDERS: ATTEND Family Medicine
DX: Z12.2 Encounter for screening for malignant neoplasm of respiratory organs (principal); F17.211 Nicotine dependence, cigarettes, in remission
CPT/HCPCS: G0297

== ENCOUNTER → 2018-11-25 | Outpatient (CLI) | payer MEDICAID, MEDICARE ==
--- NOTE | 2018-11-25 13:08 | RADIOLOGY REPORT (SQ) ---
EXAM DESCRIPTION: CT LUNG CANCER SCREENING COMPLETED DATE/TIME: 11/25/2018 9:54 am REASON FOR STUDY: PERSONAL HX OF NICOTINE DEPENDENCE (Z87.891) Z87.891 PERSONAL HISTORY OF NICOTINE DEPENDENCE Has the patient had a Chest CT scan within the past year? No Was the patient offered tobacco cessation counseling? Yes Was the patient engaged in shared decision making for this test? Yes Does the patient have signs or symptoms of Lung Cancer? No Is the patient a smoker? Yes How many pack years? 650 How many years since quitting smoking? Not applicable Patients age: 73 COMPARISON: 09/07/2017, 08/06/2016 TECHNIQUE: Low Dose CT scan performed of the chest without intravenous contrast for purposes of scre ening for lung cancer. Images reviewed with lung, soft tissue and bone windows. Reconstructed coron al and sagittal MPR images reviewed. All images stored on PACS. All CT scanners at this facility use dose modulation, iterative reconstruction, and/or weight based d osing when appropriate to reduce radiation dose to as low as reasonably achievable (ALARA). [facility]: Dose Right [facility]: CareDose [facility]: Dose Right [facility]: Teradose 4D [facility]: [employer] RADIATION DOSE: CT Rad equipment meets quality standard of care and radiation dose reduction techniq ues were employed. CTDIvol: 2.0 mGy. DLP: 83 mGy-cm. mGy. . LIMITATIONS: None FINDINGS: LUNGS AND PLEURA: No worrisome masses or nodules. No pleural effusions or calcification s. No pneumothorax. Obstructive lung disease is present upper lobe predominant. Few increased int erstitial markings at the bases, stable HILAR AND MEDIASTINAL STRUCTURES: No identified masses. No abnormal nodes. HEART AND VASCULAR STRUCTURES: No aortic aneurysm. No pericardial effusion. No cardiac devices. CORONARY ARTERY CALCIFICATIONS: Mild to moderate calcifications. UPPER ABDOMEN, THYROID, BONES, OTHER SOFT TISSUES: Post cholecystectomy IMPRESSION: NO SIGNIFICANT FINDING IN THE LUNGS ON NON-CONTRASTED CHEST CT. NO OTHER CLINICALLY SIGNIFICANT/POTENTIALLY CLINICALLY SIGNIFICANT FINDINGS LUNGRADS: LUNGRADS: 1 NEGATIVE. NO NODULES, OR DEFINITELY BENIGN NODULES MODIFIER: NONE RECOMMENDATION: Continue annual screening with LDCT in 12 months. COMMENT: CRITERIA: No lung nodules. Nodules with specific calcifications: Complete, central, popcorn, concentric rings and fat containin g nodules. TECHNICAL DOCUMENTATION: JOB ID: [id number] Quality ID # [id number]: Final reports with documentation of one or more dose reduction techniques (e.g., Au tomated exposure control, adjustment of the mA and/or kV according to patient size, use of iterative reconstruction technique) 2010 [facility] Radiology Reading location - IP/workstation name: [facility]-
== END ==
LOC: RAD 09:32
PROVIDERS: ATTEND Family Medicine
DX: Z12.2 Encounter for screening for malignant neoplasm of respiratory organs (principal); Z87.891 Personal history of nicotine dependence
CPT/HCPCS: G0297

== ENCOUNTER → 2019-03-07 | Outpatient (CLI) | payer MEDICARE ==
--- NOTE | 2019-03-08 12:53 | XCELERA REPORT ---
[address] [address] Tel: [phone] Fax: [phone] Lower Extremity Arterial Evaluation Name: BRANDON BARROSO Age: 74 yrs Gender: Male : 1945 Patient Status: Outpatient Patient Location: [facility] Study Date: 03/07/2019 01:14 PM Procedure: Ankle brachial indicies performed. Reason For Study: PAIN Ordering Physician: THEODORE XAVIER Performed By: Sarwat York Right Side Arterial Evaluation FLOR in Anterior Tibial:0.55. Multiphasic waveform. Left Side Arterial Evaluation FLOR in Posterior Tibial:0.86. . Multiphasic waveform. Interpretation Summary Abnormal FLOR's. On the right suggesting moderate obstructive arterial disease. On the left suggesting mild obstructive arterial disease. Within the limitations of this technique. : THEODORE XAVIER > Phillip Cerna
== END ==
LOC: SP 12:55
PROVIDERS: ATTEND Physician Assistant
DX: M79.604 Pain in right leg (principal); M79.605 Pain in left leg
CPT/HCPCS: 93922

== ENCOUNTER → 2019-11-28 | Outpatient (CLI) | payer MEDICARE ==
--- NOTE | 2019-11-28 14:36 | RADIOLOGY REPORT (SQ) ---
EXAM DESCRIPTION: MRI LUMBAR SPINE WITHOUT IMAGES COMPLETED DATE/TIME: 11/28/2019 11:57 am REASON FOR STUDY: (M54.16)RADICULOPATHY, LUMBAR REGION M48.062 SPINAL STENOSIS, LUMBAR REGION WITH NEUROGENIC ANKIT M54.16 RADICULOPATHY, LUMBAR REGION COMPARISON: None. TECHNIQUE: Sagittal and Axial imaging includes T1, T2, STIR and gradient echo sequences. Coronal T2/ HASTE imaging. LIMITATIONS: Motion artifact. FINDINGS: VISUALIZED UPPER ABDOMEN: Limited evaluation. No acute or suspicious findings suggested. SEGMENTATION: No transitional anatomy. The lowest well-developed disc space is labeled L5-S1. ALIGNMENT: Mild scoliosis. VERTEBRAE: Intact. BONE MARROW: Mild reactive edema L4- 5 endplates. DISC SIGNAL: Desiccation multiple levels. POSTERIOR ELEMENTS: Generally intact. No pars defect evident. HARDWARE: None in the spine. CORD AND CONUS: Normal in size and signal intensity. Conus at the appropriate level. SOFT TISSUES: No aortic aneurysm seen. No bulky retroperitoneal adenopathy or mass. No paraspinal mas s or fluid. L1-L2: Minimal narrowing of the spinal canal due to disc bulge. L2-L3: Mild spinal stenosis due to disc bulge and facet arthropathy. L3-L4: Mild -moderate spinal stenosis to disc bulge and facet arthropathy. Moderate neural foraminal narrowing bilaterally. L4-L5: Moderate spinal stenosis. Questionable laminectomy to left of midline. Severe right and mode rate left neural foraminal narrowing. L5-S1: Disc bulge and facet arthropathy. No significant stenosis. LOWER THORACIC: Incompletely imaged. No stenosis seen. SACRUM: Visualized upper sacrum intact. OTHER: No other significant findings. IMPRESSION: Spinal stenosis at multiple levels, more advanced at L4-5. TECHNICAL DOCUMENTATION: JOB ID: [id number] [employer]- All Rights Reserved Reading location - IP/workstation name: [email or web address]
== END ==
LOC: RAD 10:44
PROVIDERS: ATTEND Anesthesiology Pain Medicine
DX: M48.062 Spinal stenosis, lumbar region with neurogenic claudication (principal); M54.16 Radiculopathy, lumbar region
CPT/HCPCS: 72148